=== PATIENT | female | born 1945 | race Caucasian/White ===

== ENCOUNTER 2016-11-11 03:37 | Observation (INO) | payer MEDICARE ==
[2016-11-11] VITALS (11 sets, daily range): BP systolic 121–159; BP diastolic 61–79; PULSE 65–80; RESP 13–46; O2SAT 96–98
[~2016-11-11] VITALS: Ht 170.2 cm; Wt 75.7 kg
[~2016-11-11 03:37] MED LIST: ALLO100T PO; AMLO5TAB90 PO; ATOR20TA35 PO; CARV25T PO; COL100L PO; DIAZ5TAB3 PO; HYDR10TA47 PO; MAGN400C PO; NIT4 SL; OXY5 PO; SEN PO; TRIA1TAB PO; ZES20T PO
[2016-11-11 04:00] LABS: BASOPHILS % (AUTO) 0.3 % (0-3); EOSINOPHILS % (AUTO) 1.7 % (0-5); MONOCYTES % (AUTO) 6.4 % (4-12); Mean Corpuscular Hemoglobin 31.6 pg (27.0-35.0); Mean Corpuscular Volume 93.3 fL (81-100); NEUTROPHILS % (AUTO) 79.4 % (40-74); Platelet Count 235 bil/L (150-400)
--- NOTE | 2016-11-11 04:21 | ED.REPORT ---
HPI-Chest Pain 40 and Over Date of Service Nov 11, 2016 ED Provider: Steffen Churchill MD The pt is a 70 y/o female with a hx of hypertension, hypercholesterolemia, and recurrent PVCs who presents to the ED complaining of left sided chest pain that radiates down her left arm, onset 9 hours ago. Associated sx include shortness of breath and nausea. She has never experienced similar sx before. She reports significant stress recently. Both her stress test and cardiac cath about 10 years ago were negative. Nursing Notes Stated Complaint: CHEST PAIN Chief Complaint: Chest Pain Nursing Notes Reviewed: Yes Allergies: Coded Allergies: scopolamine (Verified Allergy, Unknown, UNKNOWN, 04/18/13) Scheduled Allopurinol-Expunged Drug, Do Not Renew! (Allopurinol-Expunged Drug, Do Not Renew!) 100 Mg Tablet 200 MG PO DAILY AmLODIPine-Expunged Drug, Do Not Renew! (AmLODIPine-Expunged Drug, Do Not Renew! ) 5 Mg Tablet 5 MG PO DAILY Atorvastatin-Expunged Drug, Do Not Renew! (Atorvastatin-Expunged Drug, Do Not Renew!) 20 Mg Tablet 20 MG PO QPM Carvedilol-Expunged Drug, Do Not Renew! (Carvedilol-Expunged Drug, Do Not Renew! ) 25 Mg Tablet 25 MG PO BID Diazepam-Expunged Drug, Do Not Renew! (Diazepam-Expunged Drug, Do Not Renew!) 5 Mg Tablet 5 MG PO Q6 Docusate Sod-Expunged Drug, Do Not Renew! (Docusate Sod-Expunged Drug, Do Not Renew!) 100 Mg Capsule 100 MG PO BID stop if loose stools Lisinopril-Expunged Drug, Do Not Renew! (Lisinopril-Expunged Drug, Do Not Renew! ) 20 Mg Tablet 20 MG PO DAILY Magnesium Oxide (Magnesium) 400 Mg Capsule 400 MG PO DAILY Nitroglycerin-Expunged Drug, Do Not Renew! (Nitroglycerin SL-Expunged Drug, Do Not Renew!) 0.4 Mg Subl 0.4 MG SL PRN Senna-Expunged Drug, Do Not Renew! (Senokot-Expunged Drug, Do Not Renew!) 8.6 Mg Tablet 17.2 MG PO BID stop if loose stools Triamterene/HCTZ-Expunged Drug, Do Not Renew! (Maxzide 75/50-Expunged Drug, Do Not Renew!) 1 Tab Tablet 1 TAB PO DAILY hyDRALazine-Expunged Drug, Do Not Renew! (hyDRALazine-Expunged Drug, Do Not Renew!) 10 Mg Tab 20 MG PO TIDWM Scheduled PRN oxyCODONE-Expunged, Do Not Renew! (oxyCODONE-Expunged, Do Not Renew!) 5 Mg Tablet 5-10 MG PO Q4-6H PRN PRN For Pain General Time Seen by MD: 04:13 Chief Complaint Chest pain Hx Obtained From: Patient Arrived By: Walk-in Sudden in Onset?: Yes Onset Occurred: 9 - 12 hours ago Symptom Duration: Since onset Location: : Chest left Quality: Painful Radiation: : Arm left Severity: Current: Moderate Severity: Maximum: Moderate Recent Healthcare: No recent doctor visit Past Medical History Past Medical History 1. Hypertension. 2. Hypercholesterolemia. 3. Recurrent PVCs with negative cardiac catheterization about six years ago, and a negative stress test in the past month prior to her back surgery. Past Surgical History 1. Status post T and A in 1968. 2. Status post exploratory laparotomy due to ruptured ectopic [id number]. 3. Status post 1977. 4. Status post total hysterectomy in 1979. 5. Status post excision of melanoma on the right leg with lymph node dissection in 2004. 6. Status post partial L4 and partial L5 laminectomy, foraminectomy of the L4 and L5 nerve roots bilaterally, along with L4-L5 transforaminal lumbar interbody fusion, performed by Dr. Cates on April 19, 2013. Family History Her father of an VT at 56 Her brother had an VT at 40. Smoking History Unknown if Ever Smoker Social History Drinks a glass of wine everyday Drug Use: Denies drug use Other Social History: Good social support, Ambulatory Status Independent Review of Systems Respiratory: Reports: Shortness of breath Cardiovascular: Reports: Chest pain GI: Reports: Nausea Musculoskeletal: Reports: Extremity pain (left arm) Complete sys rev & neg: except as marked. Physical Exam Initial Vital Signs Vital Signs (First) Date Time Temp Pulse Resp B/P Pulse Ox O2 Delivery O2 Flow Rate FiO2 11/11/16 03:46 36.8 75 18 159/74 98 Room Air 11/11/16 04:00 0 Initial VS: Reviewed Head / Eyes: Atraumatic, Normocephalic Neck: Supple, Non-tender, Full range of motion Extremities: Vascular intact, Neuro intact, No swelling, No tenderness Skin: Warm, Dry, No cyanosis Neurologic: Alert, Oriented, Nonfocal General/Constitutional: Awake, Alert, No acute distress, Well appearing, Well hydrated, Cooperative Respiratory / Chest: Atraumatic, Breath sounds NL, Breath sounds = bilat, No respiratory distress, No rales, No rhonchi, No wheezing, No chest tenderness, No chest wall deformity Cardiovascular: Heart rate NL, Regular rhythm, Heart sounds NL, No gallop, No murmurs, No rubs Abdomen: Atraumatic, Soft, Non-tender, No guarding, No rebound Lower Extremity / Pelvis / MS: Atraumatic, Full range of motion, No swelling, Non-tender, No deformity, Neurologic intact, Vascular intact Upper Extremity / MS: Atraumatic, Full range of motion, No swelling, Non-tender , No erythema, No deformity, Neurologic intact, Vascular intact Interpretation & Diagnostics Lab Results Interpretation Result Diagram: 11/11/16 0350 11/11/16 0350 Test 11/11/16 03:50 11/11/16 06:18 White Blood Count 14.5th/mm3 (3.8-10.1) Red Blood Count 4.21mil/mm3 (3.90-5.20) Hemoglobin 13.3g/dL (12.0-15.6) Hematocrit 39.3% (35.0-46.0) Mean Corpuscular Volume 93.3fL (81-100) Mean Corpuscular Hemoglobin 31.6pg (27.0-35.0) Mean Corpuscular Hemoglobin Concent 33.8% (32.0-37.0) Red Cell Distribution Width 13.5% (12.3-15.4) Platelet Count 235bil/L (150-400) Neutrophils (%) (Auto) 79.4% (40-74) Lymphocytes (%) (Auto) 11.9% (14-46) Monocytes (%) (Auto) 6.4% (4-12) Eosinophils (%) (Auto) 1.7% (0-5) Basophils (%) (Auto) 0.3% (0-3) Sodium Level 137mEq/L (134-144) Potassium Level 3.9mEq/L (3.5-5.2) Chloride Level 97mEq/L (97-108) Carbon Dioxide Level 22mmol/L (18-29) Blood Urea Nitrogen 36mg/dL (8-27) Creatinine 1.20mg/dL (0.57-1.00) Estimat Glomerular Filtration Rate 64mL/min (>59) Glucose Level 115mg/dL (60-99) Calcium Level 9.8mg/dL (8.5-10.1) Magnesium Level 1.5mg/dL (1.6-2.6) Total Bilirubin 0.7mg/dL (0.0-1.2) Aspartate Amino Transf (AST/SGOT) 19U/L (0-50) Alanine Aminotransferase (ALT/SGPT) 12U/L (0-32) Alkaline Phosphatase 73U/L (25-165) Total Protein 8.0g/dL (6.4-8.4) Albumin 4.6g/dL (3.4-5.0) ECG Interpretation ECG Interpretation: Normal sinus rhythm. Rate 76. Time: 03:48 Interpreted by: ED physician X-Ray Chest Interpretation Chest Xray Interpretation: Normal View: Portable, 1 view Interpretation / Wet Read by: Wet read ED physician Re-Eval/Medical Decision Med Decision/Clinical Course 70-year-old female presents with chest discomfort. She did get some relief of her chest pain with nitroglycerin. Her initial troponin and EKG are negative. Her care is being turned over at change of shift to Dr. Valdez pending repeat troponin and EKG evaluations. Source of Hx: Old records Counseled Regarding: Diagnosis Discharge & Departure Shift Change Sign-Out Patient Care Transferred: Yes Discussed Complaint(s): Yes Laboratory Evaluation: Lab evaluation discussed Imaging Studies: Imaging discussed Referrals: Elias Coffey MD (PCP) Care Transferred to: Dr. Valdez Care Transferred at: 06:00 Scribe Attestation Portions of this note were transcribed by Selina Hernandez. I,, personally performed the history,physical exam and medical decision-making;I reviewed and confirmed the accuracy of the information in the transcribed note. Signed by Jose Guadalupe Cunningham. 11/11/16 copies to: Elias Coffey MD, Howard L MD Nov 11, 2016 04:21 Selina Hernandez Nov 11, 2016 04:27
[2016-11-11 04:22] LABS: TROPONIN T 0.01 ug/L (0.0-0.011)
[2016-11-11] MEDS ORDERED: Nitroglycerin 2% 1 Gm Ointment TOPICAL ONE ×2 (04:30→05:25)
[2016-11-11 04:33] LABS: Magnesium 1.5 mg/dL (1.6-2.6)
[2016-11-11] MEDS ORDERED: Ondansetron 2 mg/mL 2 mL Inj ONE (05:12)
[2016-11-11] MEDS ORDERED: Ondansetron 2 mg/mL 2 mL Inj IVPUSH PRN ×2 (05:25→08:55)
--- NOTE | 2016-11-11 08:08 | DRSVH ---
PROCEDURE: X-RAY CHEST ONE VIEW, PORTABLE ([id number]) INDICATIONS: CHEST PAIN TECHNIQUE: One view of the chest was acquired. COMPARISON: [facility], , CHEST 2VW, 05/28/2013, 17:49. FINDINGS: Surgical changes and devices: None. Lungs and pleura: No pleural effusions or pneumothorax. Lungs are clear. Calcific density projects in the right upper lobe possibly bone island versus calcified granuloma. This is unchanged since 2013 . Mediastinum: Mediastinal contours appear normal. Heart size is normal. Bones and chest wall: No suspicious bony lesions. Overlying soft tissues appear unremarkable. IMPRESSION: No acute disease. Dictated by: Uday Freitas M.D. on 11/11/2016 at 8:06 Approved by: Uday Freitas M.D. on 11/11/2016 at 8:06
[2016-11-11] MEDS ORDERED: Alum-Mag Hydrox-Simeth 30 mL Suspension PO PRN ×2 (08:55→11:35)
--- NOTE | 2016-11-11 10:30 | NUR ---
Admit Pt arrived on unit alert and oriented X3. VS WNL. Pt stated that she had 6/10 chest pain that radiated into her left forearm that has not diminished completely since she came to ED. Denies SOB. Pt has nitro paste on chest and was given Morphine in the ED which temporarily lowered pain to a 2/10. Pt c/o increased chest pain with ambulation to bathroom. This RN requested that she use the call light and BSC. at bedside shortly after arrival to unit and aware chest pain. Admission and med rec complete. continue to monitor
[2016-11-11] MEDS ORDERED: ZYL100 PO (11:01)
[2016-11-11] MEDS ORDERED: MAGN250T29 PO (11:12)
[2016-11-11] MEDS ORDERED: DOCU250C2 PO (11:12)
[2016-11-11] MEDS ORDERED: TRIA1TAB5 PO ×2 (11:12→11:14)
[2016-11-11] MEDS ORDERED: HYDR20VI6 PO (11:12)
[2016-11-11] MEDS ORDERED: Polyethylene Glycol (PEG) 17 Gm Powder PO PRN (11:35)
[2016-11-11] MEDS: Sodium Chloride LOK Flush 10 mL Syringe IVFLUSH SCH ×2 (13:03→17:06)
[2016-11-11] MEDS ORDERED: HYDROcodone-APAP 5-325 mg Tablet PO PRN (13:10)
--- NOTE | 2016-11-11 15:07 | PCM.HPMED ---
Subjective Date of Service Nov 11, 2016 Primary Provider: Admitting Physician: Hieu Gonzalez MD Primary Care Physician: Alana Echeverria PA-C Attending Physician: Hieu Gonzalez MD Admit Status: From the Emergency Department, 23-Hour Observation, Admit to [place] Team, Remote Telemetry Chief Complaint: Chest pain History of Present Illness: This is a 70-year-old female who has had chest pain since last evening. She has a history of hypertension and family history of heart disease. She has had multiple stress tests in the past with her last being 2 years ago said to be normal. She had a coronary and [place] about 12 years ago, said to be normal. Yesterday she was more fatigued and had a neck which was stiff and seemed out. I have been going on for about a week. Yesterday she went to the chiropractor and had a pneumatic gun treatment. This was around noon. At dinner she developed an odd sensation of chest pressure. She went to the hot tub to alleviate it. Did not really improve. It was hard to get a position of comfort. She went to bed after taking Aleve p.m. and woke up one 2 hours later with nausea and ongoing chest pressure. She also had restlessness. There is some radiation of a total left arm. This is described as achy and stabbing. There is no arm numbness. She denies any pleuritic component or positional changes improving or exacerbating the pain. She went to the ED where they gave her nitroglycerin sublingual and is paced. She was also given a dose of IV morphine. This did help her pain somewhat. It then worsened after walking to the bathroom and she became nauseated and hot. She did have 2 troponins said to be negative and the D as well as a normal EKG. Review of Systems: She denies recent cough or rhinorrhea. No anxiety or depression. No diarrhea, blood product, melena. No hematuria or dysuria. No dyspeptic symptoms. All else reviewed and otherwise negative except as noted in history of present illness Allergies Coded Allergies: scopolamine (Verified Allergy, Unknown, UNKNOWN, 04/18/13) PMH Hypertension Transient acute kidney injury Right leg melanoma status post resection and no dissection. Pseudogout Surgical History Lumbar fusion Right leg melanoma resection and inguinal node dissection Hysterectomy at age 33 Colonoscopy, last 5 years ago Family History Father at age 56 [place], brother [place] age 40 with PCI to left knee and another brother and mother with colon cancer Social History Occupation: retired nurse Hx Alcohol Use: Yes Alcoholic Drinks Per Day: GLASS OF WINE AND A COCTAIL Hx Substance Use: No Hx Tobacco Use: No Smoking Status: Unknown if Ever Smoker Living Arrangement: with Family Exam Vital Signs Vital Sign - Last Date Time Temp Pulse Resp B/P Pulse Ox O2 Delivery O2 Flow Rate FiO2 11/11/16 14:37 36.5 67 20 146/79 97 Room Air 11/11/16 10:20 0 Exam Oriented 3. No distress. Fluent speech. Normal affect. Normal skull. Normal nose and ears. Anicteric sclera, symmetric pupils Oropharynx is unremarkable, no facial droop. Neck is supple, normal thyroid. No adenopathy. Lungs are clear, normal effort rate. Heart is regular without murmur gallop or rub. Abdomen soft, nondistended or tender. Extremities are free of pedal edema. Good radial and pedal pulses. Skin is free of rash, lesions. No petechiae or ecchymosis. Joints are grossly normal. Cranial nerves are grossly normal. Motor strength is normal in all extremities. Normal muscular tone. Lab and Diagnostics Result Diagram: 11/11/16 0350 11/11/16 0350 X-Rays, CTs and MRIs Chest x-ray is unremarkable 12-lead ECG Sinus rhythm And nonspecific ST segment changes V1 to V2 Assessment & Plan 1. Chest pain, present on admission and intermittently active. The patient will have Nitropaste removed, continue aspirin. Another troponin will be obtained. We will then proceed to a stress test to rule out evidence of coronary ischemia. 2. Hypomagnesemia, present on admission and active. Replete and follow 3. Hypertension, present on admission and active. Resume all usual medications 4. Pseudogout, present on admission stable. Resume allopurinol. She is full resuscitation Observation status, admitted anticipating one at length of stay. Pain Evaluation: Adequate Pain Control Resuscitation Status: CPR: Attempt Resuscitation Time spent 40 minutes Hieu Gonzalez MD Nov 11, 2016 15:07
[2016-11-11] MEDS ORDERED: CARV25TA2 PO (22:49)
[2016-11-12] VITALS (8 sets, daily range): BP systolic 128–146; BP diastolic 66–76; PULSE 66–83; RESP 16–20; O2SAT 95–97
[2016-11-12] MEDS: Sodium Chloride LOK Flush 10 mL Syringe IVFLUSH SCH ×3 (00:30→16:28)
--- NOTE | 2016-11-12 02:59 | NUR ---
Med Rec Patient asked about missing Carvedilol BID 25mg, added to home medications. Changed BID Hydralazine to 20mg PO tab instead of IM vial. MD notified of changes and due to AM stress test HS dose held.
--- NOTE | 2016-11-12 03:02 | NUR ---
Pain mild chest pain reported but refusing any pain medication at this time. Will notify staff if requiring pain medication. Agreed to use BSC to void rather than walk to BR.
[2016-11-12] MEDS: Ondansetron 2 mg/mL 2 mL Inj IVPUSH PRN ×2 (05:18→09:27)
[2016-11-12] MEDS ORDERED: Magnesium Sulf 4 Gm/100 mL H2O 4 GM in IV Premix 1 EACH IV ONE (07:05)
--- NOTE | 2016-11-12 07:47 | NUR ---
off unit patient is off unit to [facility] for stress test.
[2016-11-12 08:49] LABS: BASOPHILS % (AUTO) 0.3 % (0-3); EOSINOPHILS % (AUTO) 2.9 % (0-5); MONOCYTES % (AUTO) 8.6 % (4-12); Mean Corpuscular Hemoglobin 31.5 pg (27.0-35.0); Mean Corpuscular Volume 94.6 fL (81-100); NEUTROPHILS % (AUTO) 70.5 % (40-74); Platelet Count 217 bil/L (150-400)
--- NOTE | 2016-11-12 10:10 | PCM.PNMED ---
Subjective Date of Service Nov 12, 2016 Exam Vital Signs Vital Sign - Last Date Time Temp Pulse Resp B/P Pulse Ox O2 Delivery O2 Flow Rate FiO2 11/12/16 07:40 75 11/12/16 05:13 36.7 20 136/74 95 Room Air 11/11/16 10:20 0 Intake and Output 11/11/16 11/11/16 11/12/16 Cumulative From/Thru 15:00 23:00 07:00 11/11/16 03:46 - 11/12/16 06:44 Intake Total 700 ml 500 ml 1200 ml Output Total 900 ml 1375 ml 2275 ml Balance -200 ml -875 ml -1075 ml Intake Oral 700 ml 500 ml 1200 ml Output Urine Total 900 ml 1375 ml 2275 ml # Bowel Movements 0 0 Exam Neurologic: Alert, Oriented, Nonfocal General/Constitutional: Awake, Alert, No acute distress, Well appearing, Well hydrated, Cooperative Respiratory / Chest: Atraumatic, Breath sounds NL, Breath sounds = bilat, No respiratory distress, No rales, No rhonchi, No wheezing, No chest tenderness, No chest wall deformity Cardiovascular: Heart rate NL, Regular rhythm, Heart sounds NL, No gallop, No murmurs, No rubs Abdomen: Atraumatic, Soft, Non-tender, No guarding, No rebound Lower Extremity / Pelvis / MS: Atraumatic, Full range of motion, No swelling, Non-tender, No deformity, Neurologic intact, Vascular intact Upper Extremity / MS: Atraumatic, Full range of motion, No swelling, Non-tender , No erythema, No deformity, Neurologic intact, Vascular intact Lab and Diagnostics Result Diagram: 11/12/1652511/12/16525 X-Rays, CTs and MRIs Chest x-ray is unremarkable 12-lead ECG Sinus rhythm And nonspecific ST segment changes V1 to V2 Assessment & Plan 1. Chest pain, present on admission and intermittently active. - The patient will have Nitropaste removed, continue aspirin. Another troponin will be obtained. We will then proceed to a stress test to rule out evidence of coronary ischemia. - pericarditis a possibility, will start her on ibuprofen with famotidine for prophylaxis 2. Hypomagnesemia, present on admission and active. Replete and follow 3. Hypertension, present on admission and active. Resume all usual medications 4. Pseudogout, present on admission stable. Resume allopurinol. She is full resuscitation Observation status, admitted anticipating one at length of stay. Resuscitation Status: CPR: Attempt Resuscitation Time spent 35 mins Abdullahi Farley MD Nov 12, 2016 10:10
[2016-11-12 10:22] LABS: COLOR,URINE YELLOW (YELLOW)
[2016-11-12 10:23] LABS: APPEARANCE,URINE CLEAR (CLEAR,HAZY); OCCULT BLOOD,URINE NEGATIVE (NEGATIVE); UROBILINOGEN,URINE NORMAL (NORMAL)
--- NOTE | 2016-11-12 12:01 | NUR ---
Case Management- NICHOLS explained and signed/ timed by patient. Copy given to patient. Original placed in chart. Jessica Mercado RN, CCM
[2016-11-12] MEDS: Famotidine Inj 20 MG in IV Premix 1 EACH IV SCH (21:52)
[2016-11-13] VITALS (7 sets, daily range): BP systolic 126–134; BP diastolic 66–81; PULSE 59–97; RESP 16–18; O2SAT 93–97
[2016-11-13] MEDS: Sodium Chloride LOK Flush 10 mL Syringe IVFLUSH SCH ×2 (00:15→08:34)
--- NOTE | 2016-11-13 05:18 | NUR ---
Shift report Pt slept most of night, c/o pain and requested ibuprofen with + effects. Pt has been NPO since midnight for morning stress test. Has not been anxious or shown any sx of . Up to BR with SBA and steady gait. Pt a/o x3, making needs known. call light in reach. Care continues
[2016-11-13 06:53] LABS: BASOPHILS % (AUTO) 0.5 % (0-3); EOSINOPHILS % (AUTO) 2.9 % (0-5); MONOCYTES % (AUTO) 8.1 % (4-12); Mean Corpuscular Hemoglobin 30.8 pg (27.0-35.0); Mean Corpuscular Volume 93.7 fL (81-100); NEUTROPHILS % (AUTO) 73.7 % (40-74); Platelet Count 225 bil/L (150-400)
[2016-11-13 07:11] LABS: Magnesium 1.9 mg/dL (1.6-2.6)
[2016-11-13] MEDS: Famotidine Inj 20 MG in IV Premix 1 EACH IV SCH (08:34)
--- NOTE | 2016-11-13 12:23 | NUR ---
Social Work-initial assessment/readiness for discharge/ multidisciplinary rounds: Data:See initial assessment. Pt is a 70 y/o female who was admitted on 11/11/16 for chest pain per H&P. Pt's insurance is [facility] and PCP is COLLEEN Roberts. EMR Reviewed. Pt's readmission score is 0. SW met with pt at bedside, SW role explained. Pt is alert and oriented x3. Pt resides at home with her on [address] where she remains independent with ADLS. Pt does not use any DME and drives. Pt has no HH or SNF history. Pt has no senior living care insurance or VA benefits. SW discussed DPOA/ advanced directive, pt confirms she has completed this, SW encouraged a copy to be brought in. No concerns noted in morning rounds regarding pt's capacity for self care, per RN or MD. Pt has been up independent in her room. Pt's to provide transport home. SW provided pt with discharge planning checklist and encouraged pt to call with any questions, phone number provided. No anticipated discharge needs. SW will continue to follow if needs arise. Assessment:Pt who is independent at baseline. Plan:Pt to discharge home when medically stable via POV. No anticipated discharge needs. SW will continue to follow if needs arise. ELFEGO Couch Addendum: 11/13/16 at 1226 by KEVON REYNOLDS Amended: Links added.
[2016-11-13] MEDS ORDERED: IBUP-1827 PO (13:14)
[2016-11-13] MEDS ORDERED: FAMO20TA4 PO (13:14)
--- NOTE | 2016-11-13 15:07 | PCM.DIMED ---
Discharge Instructions Date of Service Nov 13, 2016 Dates of Hospitalization Nov 11, 2016 at 09:13 Discharge Diagnosis Discharge Diagnosis Chest pain likely muscoskletal vs pericarditis Medication Instructions Additional med instructions Ibuprofen tapering dose as written in prescription Diet Discharge Diet: Heart Healthy Activity Discharge Activity: No restrictions Call your provider Call your provider for: Fever or Chills, Vomitting, Excessive diarrhea, Weakness (unilateral) Patient Instructions Follow-up with PCP in: 2 weeks Abdullahi Farley MD Nov 13, 2016 15:07
--- NOTE | 2016-11-13 15:07 | DRSVH ---
PROCEDURE: 2 DAY STRESS TEST Rest and exercise myocardial perfusion SPECT with gated imaging and ejection fraction RADIOPHARMACEUTICAL: 8.7 mCi Tc-99m tetrafosmin IV at rest and 24.6 mCi Tc-99m tetrafosmin IV at pea k exercise. [id number] was performed. INDICATIONS: CHEST PAIN. TECHNIQUE: Radiopharmaceutical was injected at peak stress test, and also at rest. SPECT images wer e obtained. SPECT myocardial perfusion images were displayed in short axis, horizontal long axis, an d vertical long axis views. Gated images were reviewed using Auto[employer] software. COMPARISON: None. CARDIAC STRESS: A standard Alex treadmill exercise tolerance test was performed by the patient under the supervision of an attending staff. The patient exercised for 7 minutes and 8 seconds reaching 10.1 METs; functi onal aerobic impairment (MILLA) is -20%. Hemodynamic data: There is normal blood pressure and heart rate response to exercise stress. Patien t achieved 95% of maximum predicted heart rate at peak exercise. Symptoms: Patient denied chest pain during exercise. EKG: Non-diagnostic mild (<1 mm) horizontal depressoins in the inferior and anterolateral leads; rar e PVCs. FINDINGS: Raw data: There is good myocardial labeling by radiotracer. No significant motion artifacts. Left ventricle function: Gated images demonstrate normal left ventricle wall thickening. No segment al wall motion abnormality. No transient ischemic dilation. The left ventricle resting end-diastoli c volume is 60 mL. Left ventricle stress ejection fraction is 82%; normal values are above 45%. Myocardial perfusion: Normal perfusion at rest and normal perfusion at stress supine images. Prone stress imaging has basal to mid lateral wall defect that resolves with supine imaging, suggesting art ifact. IMPRESSION: Low risk normal treadmill nuclear stress test. 1) Normal perfusion images, with no evidence of significant ischemia or infarction. 2) Normal left ventricular size and function. 3) No angina or angina equivalent symptoms with exercise. 4) Non-diagnostic mild (<1 mm) horizontal depressoins in the inferior and anterolateral leads; rare P VCs. 5) Good exercise tolerance (10.1 METs achieved, MILLA -20%). Target heart rate achieved. Appropriate blood pressure response to exercise. Dictated by: Zachariah Valladares M.D. on 11/13/2016 at 14:57 Approved by: Zachariah Valladares M.D. on 11/13/2016 at 15:05
--- NOTE | 2016-11-13 15:09 | PCM.DC.MED ---
Discharge Summary Date of Service Nov 13, 2016 Dates of Hospitalization Date of Hospital Admission Nov 11, 2016 at 09:13 Date of Discharge: Nov 13, 2016 Providers: Admitting Physician: Hieu Gonzalez MD Primary Care Physician: Alana Echeverria PA-C Attending Physician: Cheo Farley MD Diagnosis at Time of Discharge Diagnosis at Time of Discharge Chest pain likely muscoskletal vs pericarditis Procedures XRay, CTs & MRIs Chest x-ray is unremarkable ECG 12 Lead Sinus rhythm And nonspecific ST segment changes V1 to V2 Brief History This is a 70-year-old female who has had chest pain since last evening. She has a history of hypertension and family history of heart disease. She has had multiple stress tests in the past with her last being 2 years ago said to be normal. She had a coronary and [place] about 12 years ago, said to be normal. Yesterday she was more fatigued and had a neck which was stiff and seemed out. I have been going on for about a week. Yesterday she went to the chiropractor and had a pneumatic gun treatment. This was around noon. At dinner she developed an odd sensation of chest pressure. She went to the hot tub to alleviate it. Did not really improve. It was hard to get a position of comfort. She went to bed after taking Aleve p.m. and woke up one 2 hours later with nausea and ongoing chest pressure. She also had restlessness. There is some radiation of a total left arm. This is described as achy and stabbing. There is no arm numbness. She denies any pleuritic component or positional changes improving or exacerbating the pain. She went to the ED where they gave her nitroglycerin sublingual and is paced. She was also given a dose of IV morphine. This did help her pain somewhat. It then worsened after walking to the bathroom and she became nauseated and hot. She did have 2 troponins said to be negative and the D as well as a normal EKG. Hospital Course 1. Chest pain, present on admission and intermittently active. - Stress test normal - pericarditis a possibility, will start her on ibuprofen with famotidine for prophylaxis 2. Hypomagnesemia, present on admission and active. Replete and follow 3. Hypertension, present on admission and active. Resume all usual medications 4. Pseudogout, present on admission stable. Resume allopurinol. Exam Vital Signs (Last) Date Time Temp Pulse Resp B/P Pulse Ox O2 Delivery O2 Flow Rate FiO2 11/13/16 14:40 96 11/13/16 14:10 36.8 18 131/81 93 Room Air 11/11/16 10:20 0 Test 11/11/16 03:50 11/11/16 11:50 11/12/16 05:26 11/12/16 09:37 Total Bilirubin 0.7mg/dL (0.0-1.2) Aspartate Amino Transf (AST/SGOT) 19U/L (0-50) Alanine Aminotransferase (ALT/SGPT) 12U/L (0-32) Alkaline Phosphatase 73U/L (25-165) Total Protein 8.0g/dL (6.4-8.4) Albumin 4.6g/dL (3.4-5.0) Troponin T < 0.010ug/L (0.0-0.011) Pro-B-Type Natriuretic Peptide 62.70pg/mL (0-301) Urine Color Yellow (YELLOW) Urine Appearance Clear (CLEAR,HAZY) Urine pH 6.0 (5.0-8.0) Urine Specific [place] 1.010 (1.003-1.035) Urine Protein Negativemg/dL (NEG,TRACE) Urine Glucose (UA) Negativemg/dL (NEGATIVE) Urine Ketones Negativemg/dL (NEGATIVE) Urine Occult Blood Negative (NEGATIVE) Urine Nitrite Negative (NEGATIVE) Urine Bilirubin Negative (NEGATIVE) Urine Urobilinogen Normalmg/dL (NORMAL) Urine Leukocyte Esterase Small (NEGATIVE) Urine RBC 0-2/hpf (0-2) Urine WBC 11-50/hpf (0-5) Urine Epithelial Cells Few/hpf (NONE-MOD) Urine Crystals None seen (NONE SEEN) Urine Bacteria Few/hpf (NONE-FEW) Urine Hyaline Casts None/lpf (NONE) Urine Granular Casts None seen (NONE SEEN) Urine Waxy Casts None seen (NONE SEEN) Urine Red Blood Cell Casts None seen (NONE SEEN) Urine White Blood Cell Casts None seen (NONE SEEN) Urine Mucus None seen (None Seen) Urine Trichomonas None seen (NONE SEEN) Urine Yeast None (NONE SEEN) Urinalysis Comment None Urine Culture Reflexed Indicated Test 9/9/17 05:58 White Blood Count 8.5th/mm3 (3.8-10.1) Red Blood Count 4.15mil/mm3 (3.90-5.20) Hemoglobin 12.8g/dL (12.0-15.6) Hematocrit 38.9% (35.0-46.0) Mean Corpuscular Volume 93.7fL (81-100) Mean Corpuscular Hemoglobin 30.8pg (27.0-35.0) Mean Corpuscular Hemoglobin Concent 32.9% (32.0-37.0) Red Cell Distribution Width 13.2% (12.3-15.4) Platelet Count 225bil/L (150-400) Neutrophils (%) (Auto) 73.7% (40-74) Lymphocytes (%) (Auto) 14.3% (14-46) Monocytes (%) (Auto) 8.1% (4-12) Eosinophils (%) (Auto) 2.9% (0-5) Basophils (%) (Auto) 0.5% (0-3) Sodium Level 137mEq/L (134-144) Potassium Level 3.8mEq/L (3.5-5.2) Chloride Level 95mEq/L (97-108) Carbon Dioxide Level 26mmol/L (18-29) Blood Urea Nitrogen 26mg/dL (8-27) Creatinine 1.29mg/dL (0.57-1.00) Estimat Glomerular Filtration Rate 59mL/min (>59) Glucose Level 102mg/dL (60-99) Calcium Level 9.6mg/dL (8.5-10.1) Magnesium Level 1.9mg/dL (1.6-2.6) Discharge Medications Discharge Medications Allopurinol (Allopurinol) 100 Mg Tablet 150 MG PO DAILY (Reported) Carvedilol (Carvedilol) 25 Mg Tablet 25 MG PO BID (Reported) Docusate Sodium (Docusate Sodium) 250 Mg Capsule 100 MG PO BID (Reported) Famotidine (Famotidine) 20 Mg Tablet 20 MG PO BID Prescribed by: CHEO FARLEY MD Hydralazine (Hydralazine) 20 Mg/Ml Vial 20 MG PO BID (Reported) Magnesium Oxide (Magnesium) 250 Mg Tablet 250 MG PO ONCE (Reported) Triamterene/HCTZ 75-50 mg (Triamterene/HCTZ 75-50 mg) 1 Each Tablet 1 TABLET PO DAILY (Reported) As needed Ibuprofen (Ibuprofen) 600 Mg Tablet 600 MG PO TID PRN PRN For Pain Prescribed by: CHEO FARLEY MD Followup Plan Discharge Diet: Heart Healthy Discharge Activity: No restrictions Follow-up with PCP in: 2 weeks Time spent 35 mins Cheo Farley MD Nov 13, 2016 15:09
--- NOTE | 2016-11-13 15:10 | NUR ---
Social Work-discharge: Data:EMR reviewed. Pt is on day 2 of hospitalization for chest pain per H&P. Pt is medically stable for discharge. Pt resides at home with her and has been up independent in her room. No discharge needs identified. All updated and agreeable to plan. Assessment:Pt who is independent at baseline. Plan:Pt to discharge home today via POV. No discharge needs identified. All updated and agreeable to plan. ELFEGO Couch
--- NOTE | 2016-11-13 16:18 | NUR ---
Discharge Patient discharged to private vehicle with . She was given the results of her stress test by Dr. Farley and all discharge information was gone over including two new prescriptions. All questions answered.
== END 2016-11-13 16:18 | disposition home or self-care (01) ==
LOC: SED 03:37 → MPC 09:13
PROVIDERS: ADMIT Hospitalist; ATTEND Hospitalist
DX: R07.9 Chest pain, unspecified (principal); E83.42 Hypomagnesemia; I10 Essential (primary) hypertension; E78.00 Pure hypercholesterolemia, unspecified; I49.3 Ventricular premature depolarization; M11.20 Other chondrocalcinosis, unspecified site; Z88.8 Allergy status to other drugs, medicaments and biological substances; Z90.710 Acquired absence of both cervix and uterus; Z85.820 Personal history of malignant melanoma of skin
CPT/HCPCS: 36415; 71010; 78452; 80048; 80053; 81000; 83735; 83880; 84484; 85025; 87086; 87088; 87147; 93005; 93017; 96374; 96375; 96376; 99285; A9502; G0378; J2270; J2405; J3475; J3490